=== PATIENT | male | born 1980 | race Caucasian/White ===

== ENCOUNTER 2017-05-24 18:24 | Emergency (ER) | payer OTHER ==
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
[2017-05-24 18:30] VITALS: BP 130/54; PULSE 83; TEMP 97.7; BMI 29.3
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
[2017-05-24] MEDS ORDERED: IBUPROFEN 600 MG TABLET (FP) PO ONE ×3 (20:53→21:04)
[2017-05-24] MEDS ORDERED: CYCLOBENZAPRINE HCL 10 MG TABLET (FP) ONE ×2 (20:54→21:04)
[2017-05-24] MEDS ORDERED: CYCLOBENZAPRINE HCL 10 MG TABLET (FP) PO ONE (20:56)
== END 2017-05-24 21:08 | disposition home or self-care (01) ==
LOC: JERFT 18:24
DX: R51 Headache (principal)
CPT/HCPCS: 99281-25

== ENCOUNTER 2018-03-27 18:25 | Emergency (ER) | payer OTHER ==
[2018-03-27 19:06] VITALS: BP 115/73; PULSE 85; TEMP 98.1; BMI 28.8
--- NOTE | 2018-03-27 19:06 | PDOC ---
Rapid Medical Evaluation Time Seen by Provider: 03/27/18 19:04 Medical Evaluation: Allergies Allergy/AdvReac Type Severity Reaction Status Date / Time No Known Allergies Allergy Verified 05/24/17 18:27 03/27/18 19:04 pt c/o: productive cough x 2 days, no fever, no smoking Pt on brief exam : lcta, vss Pt ordered for: cxr Pt to proceed to the ED Discharge Disposition - Diagnosis Cough - Referrals Referrals: Debo Hall MD [Primary Care Provider] - - Patient Instructions - Post Discharge Activity
--- NOTE | 2018-03-27 19:24 | PDOC ---
History of Present Illness - General Chief Complaint: Cold Symptoms Stated Complaint: Cold Symptoms Time Seen by Provider: 03/27/18 19:04 - History of Present Illness Initial Comments: 03/27/18 19:23 37-year-old male without comorbidities presents for evaluation of cough 2 days without systemic symptoms Past History - Past Medical History Allergies/Adverse Reactions: Allergies Allergy/AdvReac Type Severity Reaction Status Date / Time No Known Allergies Allergy Verified 03/27/18 19:06 Home Medications: Ambulatory Orders Guaifenesin Dm [Mucinex Dm -] 1 tab PO BID #14 tab.[id number] 03/27/18 COPD: No - Suicide/Smoking/Psychosocial Hx Smoking History: Never smoked Have you smoked in the past 12 months: No Information on smoking cessation initiated: No Hx Alcohol Use: No Drug/Substance Use Hx: No Substance Use Type: None Review of Systems - Review of Systems Constitutional: No: Fever Respiratory: Yes: Cough *Physical Exam - Vital Signs Last Vital Signs Temp Pulse Resp BP Pulse Ox 98.1 F 85 16 115/73 100 03/27/18 18:26 03/27/18 18:26 03/27/18 18:26 03/27/18 18:26 03/27/18 18:26 - Physical Exam Comments: 03/27/18 19:23 HEAD: NC/AT EYES: Conjuntiva clear Ears: Canals and TM's normal NOSE: No d/c THROAT: Moist mucous membrances, oral pharanx clear, uvula midline NECK: Supple without adenopathy CARDIAC: S1 S2 LUNGS: CTA Full and Equal breath sounds ABDOMEN: Soft NT ND MS: Full ROM in all joints without edema NEUROLOGIC: No gross sensory or motor deficits, NVID SKIN: Normal color and temperature no lesions or rashes Moderate Sedation - Procedure Monitoring Vital Signs: Procedure Monitoring Vital Signs Temperature 98.1 F 03/27/18 18:26 Pulse Rate 85 03/27/18 18:26 Respiratory Rate 16 03/27/18 18:26 Blood Pressure 115/73 03/27/18 18:26 O2 Sat by Pulse Oximetry (%) 100 03/27/18 18:26 *DC/Admit/Observation/Transfer Diagnosis at time of Disposition: Cough, Upper respiratory infection - Discharge Dispostion Disposition: HOME Condition at time of disposition: Stable Decision to Admit order: No - Referrals Referrals: Debo Hall MD [Primary Care Provider] - - Patient Instructions Printed Discharge Instructions: DI for Viral Upper Respiratory Infection -- Adult Additional Instructions: Return to the emergency room should symptoms worsen or go unresolved. Please take the Mucinex DM as directed and follow-up with your primary care physician in one to 2 days for further evaluation and treatment options - Post Discharge Activity
== END 2018-03-27 19:41 | disposition home or self-care (01) ==
LOC: JERFT 18:25
DX: J06.9 Acute upper respiratory infection, unspecified (principal)
CPT/HCPCS: 99281-25